=== PATIENT | female | born 1990 | race Two or more races ===

== ENCOUNTER → 2019-03-09 | Outpatient (CLI) | payer OTHER, SELFPAY ==
[2019-03-14 10:33] LABS: HPV Reflexed? NOT INDICATED
== END | disposition home or self-care (01) ==
PROVIDERS: Referring Provider Obstetrics & Gynecology; Visit Provider Obstetrics & Gynecology
DX: Z12.4 Encounter for screening for malignant neoplasm of cervix (principal)
CPT/HCPCS: 88175; G0145

== ENCOUNTER → 2019-12-20 | Outpatient (CLI) | payer BC, SELFPAY ==
[2019-12-20 12:04] LABS: Absolute Lymphocyte Count 1.23 X10^3/uL (0.83-4.51); Basophil# 0.02 X10^3/uL; Basophil% 0.4 % (0-1); Eosinophil# 0.32 X10^3/uL; Eosinophils% 6.5 % (0-5); Hemoglobin 13.6 g/dL (12.0-15.0); Lymphocyte # 1.23 X10^3/ul (4.0); Mean Corp Hgb Conc 31.6 g/dL (32-36); Mean Corpuscular Hgb 30.8 pg (27.0-32.0); Mean Corpuscular Volume 97.5 fL (81-99); Mean Platelet Vol. 10.8 fl (6.2-12.0); Monocyte# 0.36 X10^3/uL; Monocyte% 7.3 % (0-10); NRBC Flagged by Analyzer 0 % (0-5); Neutrophil # 2.98 X10^3/uL (2.7-7.7); Neutrophil % 60.6 % (47-70); Platelet Count 320 K/mm3 (150-450); RBC Distribution Width CV 12.4 % (11.6-14.6); RBC Distribution Width SD 44.9 fl (35.1-43.9); Red Blood Count 4.41 M/mm3 (4.2-5.4); White Blood Count 4.9 K/mm3 (4.4-11.0)
[2019-12-20 12:47] LABS: ALB/GLOB Ratio 1.3 RATIO (0.9-2.4); AST(SGOT) 9 U/L (15-37); Alanine Aminotransfer ALT/SGPT 18 U/L (13-56); Albumin, Serum 3.9 g/dL (3.2-5.0); Alkaline Phosphatase 92 U/L (45-117); Anion Gap 2 (5-15); BUN 10 mg/dL (7-18); BUN/Creat Ratio 16.5 RATIO (10-20); CRP, High Sensitivity Cardiac 3.16 mg/L; Calcium,Total 8.5 mg/dL (8.5-10.1); Chloride 109 mmol/L (98-107); Cholesterol 150 mg/dL (200); Creatinine, Serum 0.61 mg/dL (0.55-1.02); EST Glomerular Filtration Rate 123 mL/min (>60); Est Glom Filt Rate - Afr Amer 149 mL/min (>60); Globulin 3.1 g/dL (2.2-4.2); Glucose 97 mg/dL (74-106); High Density Lipoprotein 78 mg/dL; Sodium Level 140 mmol/L (136-145)
[2019-12-20 13:05] LABS: Hemoglobin A1c 4.9 % (3.8-5.6)
[2019-12-21 04:26] LABS: LDL, Direct 120295 63 mg/dL (0-99)
== END | disposition home or self-care (01) ==
LOC: MFPLAB 10:11
PROVIDERS: PCP Family Medicine; Referring Provider Family Medicine; Visit Provider Family Medicine
DX: R07.9 Chest pain, unspecified (principal)
CPT/HCPCS: 36415; 80053; 82465; 83036; 83718; 83721; 85025; 86141

== ENCOUNTER → 2023-11-24 | Outpatient (CLI) | payer BC, SELFPAY ==
--- NOTE | 2023-11-24 09:43 | BI_ITS ---
MAMMOGRAPHY - BILATERAL DIAGNOSTIC REASON FOR EXAM: Female, 33 years old. Palpable lump in the upper outer quadrant of the left breast. PERTINENT HISTORY: Non-contributory. TECHNIQUE: Digital bilateral breast uriel (3D mammographic acquisition) in the CC and MLO projections. 2-D mediolateral oblique (MLO) and craniocaudad (CC) views of both breasts were obtained. CAD: Full Field Digital Mammography with Computer Added Detection was performed. COMPARISON: None. Baseline examination. FINDINGS: Breast Composition: The breasts are extremely dense, which lowers the sensitivity of mammography. There are no dominant masses or suspicious calcifications. No other significant abnormalities are identified. BI/DIAG MAMM W/CAD, BILAT IMPRESSION: Negative diagnostic mammogram. With the patient''s history of a palpable lump in the upper outer quadrant of the left breast, correlation with ultrasound is recommended. ASSESSMENT CATEGORY: BIRADS Category 0: Incomplete. Need additional imaging evaluation. A letter regarding these results will be sent to the patient by the facility within 30 days. Approximately 10% of breast cancers are not detected by mammography. A normal mammogram should not delay biopsy of a clinically suspicious abnormality. Electronically Signed: Nehemias Curtis MD at 11:03 EDT ,
--- NOTE | 2023-11-24 09:43 | US_ITS ---
STUDY: ULTRASOUND BREAST - LEFT REASON FOR EXAM: Female, 33 years old. Palpable lump in the upper outer aspect of the left breast. TECHNIQUE: Axial and longitudinal images of the LEFT breast were performed with a high resolution ultrasound transducer. # OF IMAGES: 39 COMPARISON: Comparison is made with prior mammogram done earlier in the day. FINDINGS: LEFT Breast: The upper outer quadrant of the left breast was examined with ultrasound. There is a 4 mm x 5 mm x 3 mm cyst at the 2:00 position of the breast at 6 cm from the nipple. A cluster of cysts also seen at the 12:00 position of the breast at 3 cm from nipple measuring 7 mm x 5 mm x 7 mm. Incidental note is made of dilated retroareolar ducts. US/Breast Limited Unilateral IMPRESSION: Cystic changes in the upper-outer quadrant left breast as described. Dilated retroareolar ducts. ASSESSMENT CATEGORY: BIRADS Category 2: Benign. A letter regarding these results will be sent to the patient by the facility within 30 days. Electronically Signed: Nehemias Curtis MD at 9:45 EDT ,
== END | disposition home or self-care (01) ==
PROVIDERS: PCP Family Medicine; Visit Provider Obstetrics & Gynecology
DX: N63.25 Unspecified lump in the left breast, overlapping quadrants (principal)
CPT/HCPCS: 76642; 77062; 77066; G0279

== ENCOUNTER → 2024-07-19 | Outpatient (CLI) | payer BC, SELFPAY ==
[2024-07-19 18:18] LABS: PTHIN 47.2 pg/mL (18.4-80.1)
[2024-07-19 18:19] LABS: Vitamin B12 1275 pg/mL (211-911)
[2024-07-19 18:20] LABS: Absolute Neutrophil Count 2.5 X10^3/uL (2.0-7.7); Basophil# 0.03 X10^3/uL; Basophil% 0.6 % (0-1); Eosinophil# 0.17 X10^3/uL; Eosinophils% 3.5 % (0-5); Hematocrit 35.5 % (37-47); Hemoglobin 10.7 g/dL (12.0-15.0); Lymphocyte % 33.4 % (19-41); Mean Corp Hgb Conc 30.1 g/dL (32-36); Mean Corpuscular Hgb 25.3 pg (27.0-32.0); Mean Corpuscular Volume 83.9 fL (81-99); Mean Platelet Vol. 10.7 fl (6.2-12.0); Monocyte# 0.45 X10^3/uL; Monocyte% 9.4 % (0-10); NRBC Flagged by Analyzer 0 % (0-5); Neutrophil # 2.53 X10^3/uL (2.7-7.7); Neutrophil % 52.9 % (47-70); Platelet Count 379 K/mm3 (150-450); RBC Distribution Width SD 45.7 fl (35.1-43.9); Red Blood Count 4.23 M/mm3 (4.2-5.4); White Blood Count 4.8 K/mm3 (4.4-11.0)
[2024-07-19 18:30] LABS: ALB/GLOB Ratio 1.1 RATIO (0.9-2.4); AST(SGOT) 19 U/L (15-37); Alanine Aminotransfer ALT/SGPT 20 U/L (13-56); Albumin, Serum 3.8 g/dL (3.2-5.0); Alkaline Phosphatase 76 U/L (45-117); Anion Gap 6 (5-15); BUN 15 mg/dL (7-18); BUN/Creat Ratio 20.9 RATIO (10-20); Calcium,Total 9.1 mg/dL (8.5-10.1); Chloride 106 mmol/L (98-107); Creatinine, Serum 0.72 mg/dL (0.55-1.02); EST Glomerular Filtration Rate 98 mL/min (>60); Est Glom Filt Rate - Afr Amer 119 mL/min (>60); Ferritin 5 ng/mL (8-252); Globulin 3.4 g/dL (2.2-4.2); Glucose 96 mg/dL (74-106); Potassium 3.8 mmol/L (3.5-5.1); Protein, Total 7.2 g/dL (6.4-8.2); Sodium Level 139 mmol/L (136-145)
== END | disposition home or self-care (01) ==
LOC: MFPLAB 16:41
PROVIDERS: PCP Family Medicine; Referring Provider Family Medicine; Visit Provider Family Medicine
DX: E61.1 Iron deficiency (principal); K59.00 Constipation, unspecified
CPT/HCPCS: 36415; 80053; 82607; 82728; 82746; 83970; 84443; 85025